=== PATIENT | female | born 2000 | race Caucasian/White ===

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

== ENCOUNTER 2019-11-03 09:51 | Emergency (ER) | payer SELFPAY ==
[~2019-11-03] VITALS: Ht 162.6 cm; Wt 86.0 kg
[~2019-11-03 09:51] MED LIST changes: +PERCOCET 5/325M1 TAB PO
[2019-11-03] MEDS ORDERED: ULTRAM50 MG PO (11:01)
[2019-11-03 11:39] VITALS: BP 126/70
== END 2019-11-03 11:48 | disposition home or self-care (01) | DRG 605 ==
LOC: ED 09:51
DX: S90.811A Abrasion, right foot, initial encounter (principal); S90.01XA Contusion of right ankle, initial encounter; W55.19XA Other contact with horse, initial encounter; Y92.009 Unspecified place in unspecified non-institutional (private) residence as the place of occurrence of the external cause; Y99.9 Unspecified external cause status

== ENCOUNTER 2022-07-02 11:19 | Emergency (ER) | payer SELFPAY ==
[~2022-07-02] VITALS: Ht 162.6 cm; Wt 99.0 kg
[~2022-07-02 11:19] MED LIST changes: +ULTRAM50 MG PO
[2022-07-02 12:19] VITALS: BP 136/86
[2022-07-02 12:31] VITALS: BP 111/85
[2022-07-02 13:00] VITALS: BP 116/65
[2022-07-02 13:30] VITALS: BP 105/72
[2022-07-02 14:00] VITALS: BP 105/64
[2022-07-02 14:06] VITALS: BP 105/64
== END 2022-07-02 14:12 | disposition home or self-care (01) | DRG 379 ==
LOC: ED 11:19
DX: K62.5 Hemorrhage of anus and rectum (principal); R10.32 Left lower quadrant pain